=== PATIENT | male | born 1960 | race Caucasian/White ===

== ENCOUNTER 2021-10-25 11:28 | Inpatient (IN) | payer SELFPAY ==
[~2021-10-25 11:28] MED LIST: Iopamidol 370 76% 100 ML VIAL ONE
[2021-10-25] MEDS ORDERED: Nitroglycerin 50 MG/250 ML BOT 250 ML ONE ×2 (11:31→17:05)
[2021-10-25] MEDS ORDERED: Morphine 4 MG/ML VIAL ONE (11:32)
[2021-10-25] MEDS ORDERED: Ondansetron PF 4 MG/2 ML Vial ONE (11:37)
[2021-10-25] MEDS ORDERED: Lidocaine 1% (PF) 30 ML VIAL ONE (11:46)
[2021-10-25 11:49] LABS: #Basophils 0.1 thou/uL (0.0-0.2); #Eosinphils 0.2 thou/uL (0.0-0.7); #Lymphocytes 4.4 thou/uL (1.20-3.40); #Monocytes 0.7 thou/uL (0.11-0.59); #Neutrophils 4.7 thou/uL (1.40-6.50); %Basophils 1.3 % (0.0-1.0); %Eosinophils 2.1 % (0.0-10.0); %Lymphocytes 43.2 % (21.0-51.0); %Monocytes 7.2 % (0.0-10.0); %Neutrophils 46.3 % (42.0-75.0); Hemoglobin 14.4 g/dL (14.0-18.0); Mean Corpuscular HGB CONC 32.5 g/dL (32.0-36.0); Mean Corpuscular Hemoglobin 31.3 pg (27.0-31.0); Mean Corpuscular Volume 96.4 fL (78.0-98.0); Mean Platelet Volume 8.4 fL (7.4-10.4); Platelet Count 195 thou/uL (130-400); RBC Distribution Width 12.6 % (11.5-14.5); Red Blood Cell (RBC) Count 4.58 mill/uL (4.70-6.10); White Blood Cell (WBC) Count 10.2 thou/uL (4.8-10.8)
[2021-10-25] MEDS ORDERED: Heparin 10,000 UNITS/ 10 ML VIAL ONE ×2 (12:01→13:07)
[2021-10-25] MEDS ORDERED: Clopidogrel Bisulfate 300 MG TAB ONE (12:12)
[2021-10-25 12:34] LABS: INR-International Normal Ratio 1.2
[2021-10-25] MEDS ORDERED: Adenosine 6 MG/2 ML VIAL ONE (12:35)
[2021-10-25 12:36] LABS: PTT 93.2 sec (22.9-36.1)
[2021-10-25] MEDS ORDERED: Aggrastat 12.5 MG/250 ML 250 ML ONE (12:36)
[2021-10-25] MEDS ORDERED: Midazolam HCl 2 mg/2 ml Vial ONE (12:39)
[2021-10-25 12:58] LABS: ALT (SGPT) 35 U/L (8-55); AST (SGOT) 48 U/L (5-34); Albumin 4.2 g/dL (3.4-4.8); Alkaline Phosphatase 105 U/L (40-110); Anion Gap 22 mmol/L (10-20); BUN (Urea Nitrogen) 10 mg/dL (8.4-25.7); Bilirubin, Total 0.7 mg/dL (0.2-1.2); Calc. Creatinine Clearance 0 mL/min (70-130); Calcium 9.7 mg/dL (7.8-10.44); Carbon Dioxide 16 mmol/L (23-31); Chloride 105 mmol/L (98-107); Estimated GFR 58; Globulin 4.5 g/dL (2.4-3.5); Glucose 126 mg/dL (80-115); Potassium 3.3 mmol/L (3.5-5.1); Protein, Total 8.7 g/dL (5.8-8.1); Sodium 140 mmol/L (136-145)
[2021-10-25] MEDS ORDERED: Morphine 2 MG/ML VIAL SLOW IVP PRN (13:35)
[2021-10-25] MEDS ORDERED: Nitroglycerin 0.4 MG TAB (25 Tab Bottle) SL PRN (13:35)
[2021-10-25] MEDS ORDERED: Morphine 4 MG/ML VIAL SLOW IVP PRN (13:35)
[2021-10-25] MEDS ORDERED: Aggrastat 12.5 MG/250 ML 250 ML IVPB SCH (13:45)
[2021-10-25] MEDS ORDERED: Lidocaine 1% PF 5 ML VIAL ONE (13:52)
[2021-10-25] MEDS ORDERED: Nitroglycerin 100MG/250ML BOT 250 ML ONE (13:52)
[2021-10-25 14:30] LABS: CKMB 151.4 ng/mL (0-6.6)
[2021-10-25 18:01] VITALS: BMI 22.8
[2021-10-25 19:24] LABS: CKMB 254.2 ng/mL (0-6.6)
[2021-10-25] MEDS ORDERED: Ondansetron PF 4 MG/2 ML Vial IVP PRN (20:40)
[2021-10-25] MEDS: Famotidine 20 MG TAB PO SCH (20:53)
[2021-10-25] MEDS: Atorvastatin Calcium 40 MG TAB PO SCH (20:53)
[2021-10-25] MEDS: Nitroglycerin 50 MG/250 ML BOT 250 ML IVPB SCH (20:53)
[2021-10-25] MEDS: Pantoprazole 40 MG VIAL IVP SCH (20:53)
[2021-10-25] MEDS ORDERED: Promethazine HCl 25 MG in Sodium Chloride 0.9% 50 ML IVPB PRN (22:34)
[2021-10-26] MEDS: Sodium Chloride 0.9% 1,000 ML IV SCH ×2 (00:41)
[2021-10-26 03:54] LABS: #Lymphocytes 2.3 thou/uL (1.20-3.40); #Neutrophils 8.3 thou/uL (1.40-6.50); %Basophils 0.2 % (0.0-1.0); %Eosinophils 0.2 % (0.0-10.0); %Lymphocytes 19.5 % (21.0-51.0); %Monocytes 8.9 % (0.0-10.0); %Neutrophils 71.2 % (42.0-75.0); Hemoglobin 12.3 g/dL (14.0-18.0); Mean Corpuscular HGB CONC 32.9 g/dL (32.0-36.0); Mean Corpuscular Hemoglobin 32.3 pg (27.0-31.0); Mean Corpuscular Volume 98.1 fL (78.0-98.0); Mean Platelet Volume 8.6 fL (7.4-10.4); Platelet Count 175 thou/uL (130-400); RBC Distribution Width 12.5 % (11.5-14.5); White Blood Cell (WBC) Count 11.6 thou/uL (4.8-10.8)
[2021-10-26 04:17] LABS: ALT (SGPT) 59 U/L (8-55); AST (SGOT) 291 U/L (5-34); Albumin 3.5 g/dL (3.4-4.8); Alkaline Phosphatase 91 U/L (40-110); Anion Gap 15 mmol/L (10-20); BUN (Urea Nitrogen) 8 mg/dL (8.4-25.7); Calc. Creatinine Clearance 76 mL/min (70-130); Calcium 8.3 mg/dL (7.8-10.44); Carbon Dioxide 19 mmol/L (23-31); Cardiac Risk 4.2 (Less than 4.5); Chloride 107 mmol/L (98-107); Cholesterol 131 mg/dl (< 200 Desired); Estimated GFR 82; Globulin 3.8 g/dL (2.4-3.5); Glucose 131 mg/dL (80-115); HDL Cholesterol 31 mg/dL (>60 Neg Risk); LDL Cholesterol, Calculated 88 mg/dL; Magnesium 1.6 mg/dL (1.6-2.6); Protein, Total 7.3 g/dL (5.8-8.1); Sodium 138 mmol/L (136-145); Triglycerides 60 mg/dL (Less than 150)
[2021-10-26 04:50] LABS: Potassium 2.8 mmol/L (3.5-5.1)
[2021-10-26] MEDS ORDERED: Electrolyte Replacement Protocol FS PRN (06:15)
[2021-10-26] MEDS: Nitroglycerin 50 MG/250 ML BOT 250 ML IVPB SCH ×2 (06:38)
[2021-10-26] MEDS: Potassium Chloride 40 MEQ in Premix Bag 1 BAG IVPB SCH ×2 (06:39→08:11)
[2021-10-26] MEDS ORDERED: Magnesium 2 GM/50 ML(in water) 2 GM in Premix Bag 1 BAG IVPB SCH (08:00)
[2021-10-26] MEDS: Aspirin Chewable 81 MG TAB PO SCH (08:08)
[2021-10-26] MEDS: Clopidogrel Bisulfate 75 MG TAB PO SCH (08:08)
[2021-10-26] MEDS: hydrALAZINE 20 MG/ML VIAL SLOW IVP PRN ×2 (08:08)
[2021-10-26] MEDS: Famotidine 20 MG TAB PO SCH (08:08)
[2021-10-26] MEDS: Pantoprazole 40 MG VIAL IVP SCH (08:10)
[2021-10-26 10:07] LABS: Troponin I 63.107 ng/mL (< 0.028)
[2021-10-26] MEDS: Carvedilol 3.125 MG TAB PO SCH ×2 (10:49→18:12)
[2021-10-26] MEDS: Lisinopril 5 MG TAB PO SCH ×2 (10:49→21:12)
[2021-10-26 14:23] LABS: Anion Gap 12 mmol/L (10-20); BUN (Urea Nitrogen) 6 mg/dL (8.4-25.7); Calc. Creatinine Clearance 82 mL/min (70-130); Calcium 8.4 mg/dL (7.8-10.44); Carbon Dioxide 20 mmol/L (23-31); Chloride 108 mmol/L (98-107); Estimated GFR 90; Glucose 120 mg/dL (80-115); Potassium 3.6 mmol/L (3.5-5.1); Sodium 136 mmol/L (136-145)
[2021-10-26 21:06] LABS: SARS-CoV-2 NAA Rapid Test Not Detected (NotDetected)
[2021-10-26] MEDS: Atorvastatin Calcium 40 MG TAB PO SCH (21:12)
[2021-10-27 06:49] LABS: Anion Gap 12 mmol/L (10-20); BUN (Urea Nitrogen) 10 mg/dL (8.4-25.7); Calc. Creatinine Clearance 77 mL/min (70-130); Calcium 8.7 mg/dL (7.8-10.44); Carbon Dioxide 23 mmol/L (23-31); Chloride 105 mmol/L (98-107); Estimated GFR 83; Glucose 91 mg/dL (80-115); Potassium 3.7 mmol/L (3.5-5.1); Sodium 136 mmol/L (136-145)
[2021-10-27] MEDS: Carvedilol 3.125 MG TAB PO SCH ×2 (08:58→16:08)
[2021-10-27] MEDS: Aspirin Chewable 81 MG TAB PO SCH (08:58)
[2021-10-27] MEDS: Lisinopril 5 MG TAB PO SCH ×2 (08:59→20:46)
[2021-10-27] MEDS: Clopidogrel Bisulfate 75 MG TAB PO SCH (08:59)
[2021-10-27] MEDS: Famotidine 20 MG TAB PO SCH (20:47)
[2021-10-27] MEDS: Atorvastatin Calcium 40 MG TAB PO SCH (20:47)
[2021-10-28] MEDS: Lisinopril 5 MG TAB PO SCH (08:26)
[2021-10-28] MEDS: Carvedilol 3.125 MG TAB PO SCH (08:27)
[2021-10-28] MEDS: Famotidine 20 MG TAB PO SCH (08:28)
[2021-10-28] MEDS: Clopidogrel Bisulfate 75 MG TAB PO SCH (08:28)
[2021-10-28] MEDS: Aspirin Chewable 81 MG TAB PO SCH (08:28)
[2021-10-28] MEDS: Potassium Chloride 20 MEQ TAB PO SCH ×2 (10:32→10:34)
[2021-10-28 11:35] VITALS: BP 126/74; TEMP 98.1
[2021-10-28] MEDS ORDERED: Rosuvastatin 20 MG TAB PO SCH (21:00)
== END 2021-10-28 13:25 | disposition home or self-care (01) | DRG 248 ==
LOC: ERS 11:28 → CCU 11:41 → CCL 11:45 → EDBD 11:45 → CCU 13:40 → 2SW 10-26 21:08
PROVIDERS: ADMIT Internal Medicine Cardiovascular Disease; ATTEND Internal Medicine Cardiovascular Disease
PROC: 02703DZ Dilation of Coronary Artery, One Artery with Intraluminal Device, Percutaneous Approach (ICD-10-PCS; principal; 2021-10-25)
PROC: 4A023N7 Measurement of Cardiac Sampling and Pressure, Left Heart, Percutaneous Approach (ICD-10-PCS; 2021-10-25)
PROC: B2111ZZ Fluoroscopy of Multiple Coronary Arteries using Low Osmolar Contrast (ICD-10-PCS; 2021-10-25)
PROC: B2131ZZ Fluoroscopy of Multiple Coronary Artery Bypass Grafts using Low Osmolar Contrast (ICD-10-PCS; 2021-10-25)
DX: I97.190 Other postprocedural cardiac functional disturbances following cardiac surgery (principal); I21.29 ST elevation (STEMI) myocardial infarction involving other sites; N17.9 Acute kidney failure, unspecified; E87.2 Acidosis; I25.810 Atherosclerosis of coronary artery bypass graft(s) without angina pectoris; T82.218A Other mechanical complication of coronary artery bypass graft, initial encounter; E78.00 Pure hypercholesterolemia, unspecified; I10 Essential (primary) hypertension; F17.210 Nicotine dependence, cigarettes, uncomplicated; E87.6 Hypokalemia; Z20.822 Contact with and (suspected) exposure to COVID-19; Z95.1 Presence of aortocoronary bypass graft; Z88.0 Allergy status to penicillin; Z88.5 Allergy status to narcotic agent; Z91.14 Patient's other noncompliance with medication regimen; Y83.8 Other surgical procedures as the cause of abnormal reaction of the patient, or of later complication, without mention of misadventure at the time of the procedure
CPT/HCPCS: 36415; 71045; 80048; 80053; 80061; 82553; 83735; 84484; 85025; 85347; 85610; 85730; 92928; 93005; 93010; 93306; 93455; 93798; 94760; 96374; 96375; 99152; C1725; C1769; C1876; C9113; J0153; J0360; J1644; J2001; J2250; J2270; J2405; J2550; J3246; J3475; J3480; J7050; Q9967; U0002